=== PATIENT | male | born 1960 | race Caucasian/White ===

== ENCOUNTER 2019-11-30 08:00 | Outpatient (RCR) | payer OTHER, SELFPAY | END 2019-11-30 08:05 | disposition home or self-care (01) | LOC: OT 08:00 | PROVIDERS: Visit Provider Orthopaedic Surgery | DX: S46.212A Strain of muscle, fascia and tendon of other parts of biceps, left arm, initial encounter (principal) | CPT/HCPCS: 97014; 97033; 97035; 97110; 97140; 97164; 97166; G0283 ==

== ENCOUNTER → 2020-10-02 14:17 | Outpatient (CLI) | payer OTHER, SELFPAY ==
--- NOTE | 2020-10-02 14:28 | XR_ITS ---
PROCEDURE: XR CHEST 2V CLINICAL HISTORY: CURRENT SMOKER, COMPARISON: No exams were available for comparison FINDINGS: The cardiomediastinal silhouette and pulmonary vascularity are within normal limits. The lungs are clear without infiltrates, suspicious nodules, or pleural effusions. There is an old left clavicular fracture. IMPRESSION: No acute findings. Dictated by: Cesario Burleson MD 10/02/2020 15:30 Cesario Burleson MD in [facility] 10/02/2020 15:30
--- NOTE | 2020-10-02 15:09 | ECG_ITS ---
APPROVED REPORT Exam: Resting ECG HR:74 bpm ECG Measurements Heart Rate 74 AXES VT 168 P 65 QRSd 130 QRS 54 QT 396 T 191 QTc 439 Conclusion Normal sinus rhythm Left bundle branch block Abnormal ECG Electronically signed by : Layton Stone, 10/04/2020 10:57:45
[2020-10-02 15:48] LABS: Basophils # 0.1 K/mm3 (0-0.2); Basophils % 0.8 % (0.1-2.0); Eosinophils # 0.3 K/mm3 (0.0-0.4); Eosinophils % 4.4 % (0.1-12.0); Hematocrit 45.2 % (42.0-52.0); Hemoglobin 15.3 g/dL (14.1-18.0); Lymphocytes # 1.7 K/mm3 (0.7-4.5); Lymphocytes % 24.8 % (10-50); Mean Corpuscular HGB Conc 33.8 g/dL (31.8-35.4); Mean Corpuscular Hemoglobin 29.9 pg (27.0-31.2); Mean Corpuscular Volume 88.6 fl (80-94); Mean Platelet Volume 8.1 fl (7.4-10.4); Monocytes # 0.5 K/mm3 (0.1-1.0); Monocytes % 7.4 % (1.7-9.3); Neutrophils # 4.2 K/mm3 (1.8-7.8); Neutrophils % 62.6 % (37.0-80.0); Platelet Count 221 K/mm3 (142-424); Red Cell Distribution Width 12.7 % (11.5-17.5); White Blood Count 6.7 K/mm3 (4.8-10.8)
[2020-10-02 16:27] LABS: Chloride 104 mmol/L (98-107); Potassium 4.7 mmoL/L (3.5-5.1); Sodium 138 mmol/L (136-145)
[2020-10-02 16:29] LABS: Alanine Aminotransferase 70 U/L (12-78); Aspartate Amino Transferase 42 U/L (17-59); Blood Urea Nitrogen 16 mg/dl (9-20); Estimated Glomerular Filt Rate 86 ml/min (>60); GFR (African American) 104 ML/MIN (>60)
[2020-10-02 16:30] LABS: Albumin Level 4.9 g/dl (3.5-5.0); Albumin/Globulin Ratio 1.8 (1.1-1.8); Alkaline Phosphatase 91 U/L (38-126); Anion Gap 12.7 mEq/L (5-15); Bilirubin,Total 0.6 mg/dl (0.2-1.3); Calcium 9.6 mg/dl (8.4-10.2); Carbon Dioxide 26 mmol/L (22.0-30.0); Globulin 2.8 g/dL (1.3-3.2); Glucose 92 mg/dl (74-100); Total Protein,Serum 7.7 g/dl (6.3-8.2)
== END ==
PROVIDERS: PCP Family Medicine; Visit Provider Family Medicine
DX: Z01.818 Encounter for other preprocedural examination (principal)
CPT/HCPCS: 36415; 71046; 80053; 85025; 93005

== ENCOUNTER → 2020-11-03 11:53 | Outpatient (CLI) | payer OTHER, SELFPAY ==
--- NOTE | 2020-11-03 11:53 | NM_ITS ---
APPROVED REPORT Exam: Nuclear Stress Test Indication: CAD, HTN, HYPERLIPIDEMIA, TOB USE, FM HX, ABN EKG, PRE-OP Patient Location: Outpatient Stress Tech: Kimberly Vasquez HI Tech:Aby Denney, ARRT, RT (R)(N) Ht: 5 ft 7 in Wt: 190 lbs HR: 63 bpm BP: 121/85 mmHg BSA: 1.98 m2 BMI: 29.7 History: CAD, HTN, HYPERLIPIDEMIA, TOB USE, FM HX, ABN EKG, PRE-OP Procedure: Patient received a 0.4 mg of intravenous Lexiscan, resting heart rate 63 bpm, resting blood pressure 121/85 mmHg, with Lexiscan maximum heart rate achived was 89 bpm which is Less than 85 % of the maximum predicted heart rate and blood pressure was 137/84 mmHg. With Lexiscan, patient denied any complaint of chest pain. Electrocardiogram Resting electrocardiogram shows sinus rhythm, intraventricular conduction delay, nonspecific ST-T changes, with Lexiscan there is less than 1.[address] segment depression noted from the baseline EKG. The EKG portion of the Lexiscan is nondiagnostic. Cardiac Stress and Resting SPECT Images: Cardiac Stress and Resting SPECT images were obtained using technetium 99m Myoview 29.4 mCi stress and 9.93 mCi at rest. Gated SPECT for analysis of segmental wall motion and calculation of ejection fraction also done. Prone images were also obtained. Cardiac stress and resting SPECT images show fixed defect involving the inferior basal wall consistent with area of myocardial scarring without significant negro-infarct ischemia, computer derived ejection fraction is 48% with moderate inferior basal wall hypokinesis, right ventricle is normal size and contractility. Conclusion: 1. The EKG portion of the Lexiscan is nondiagnostic. 2. Scintigraphic evidence of myocardial scarring involving the inferior basal wall without significant negro-infarct ischemia, computer derived ejection fraction is 48% with segmental wall motion abnormality described above, right ventricle is normal size and contractility. 3. Abnormal Lexiscan Myoview study. Electronically signed by : Avelino Badillo, 11/03/2020 23:38:48
--- NOTE | 2020-11-03 14:00 | CA_ITS ---
APPROVED REPORT EXAM: Comprehensive 2D, Doppler, and color-flow Echocardiogram Steam Roller Operator: GRICELDA Mejia, RVS Ht: 5 ft 7 in Wt: 195lbs BSA: 2.00 BP: 122/64 mmHg Rhythm: LBBB Indications: CP,SOB,CAD-OLD ME WITH CORONARY STENT, PRE-OP CLEARANCE LT SHOULDER Echo Enhancing Agent Comments: Poor acoustics with lung impedence 2D Dimensions IVSd 1.18 cm LVEF (Visual) 66.80 % PWd 0.92 cm LA Volume 45.20 mL LVDd 4.63 cm LA Volume Index 22.60 mL/m2 (M/F) 16-34 LVDs 2.92 cm Left Atrium 3.16 cm LVOT 1.83 cm (M/F) 1.5-2.5 M-Mode Dimensions RVDd 2.68 cm (0.9-2.6) LA Diam 4.01 cm (1.9-4.0) LVDd 4.86 cm (3.5-5.7) Ao Diam 3.30 cm (2.0-3.7) LVDs 2.50 cm (3.5-5.7) IVSd 0.93 cm (0.6-1.1) PWd 0.96 cm (0.6-1.1) EF (Teich) 79.90% EPSs 0.36 cm FS 48.60% EDV (Teich) 110.70 mL TAPSE 1.93 (<1.7) ESV (Teich) 22.30 mL LV Diastology E Decel Time 250.00 (160-240 msec) E/A Ratio 0.92 MED E' 5.50 (< 7 cm/sec) MED A' 9.00 cm/s E'/MED E' Ratio 13.44 (>14) LAT E' 10.20 (<10 cm/sec) LAT A' 11.80 cm/s E/LAT E' Ratio 7.25 (>14) Aortic Valve LVOT Max 109.00 (70-110 cm/s) LVOT VTI 19.18 cm AoV Peak Tristin. 137.00 (50-130 cm/s) AO Peak GR. 7.50 mmHg AO Mean GR. 3.70 (<5 mmHg) AO VTI 25.06 (18-25 cm) JERMAINE (VTI) 2.01 (2.5-4.5 cm2) Mitral Valve MV A Velocity 80.00 (40-130 cm/s) E/A Ratio 0.92 MV Decel. Time 250.00 (160-240 ms) Pulmonary Valve PV Peak Velocity 96.00 (50-150 cm/s) Tricuspid Valve TR P. Velocity 253.00 cm/s RAP Estimate 10.00 mmHg RVSP 35.60 mmHg Left Ventricle Left atrium is mildly enlarged, left ventricle is normal size, mild concentric left ventricular hypertrophy, visually estimated ejection fraction 50%, there is marked hypokinesis involving the basal septum and inferior basal wall. Grade 1 diastolic dysfunction seen without tissue Doppler evidence of raise left atrial pressure. Right Ventricle Right atrium and right ventricle are normal size and contractility. Aortic Valve Aortic valve is minimally thickened and fibrosed, there is no aortic stenosis or aortic insufficiency. Mitral Valve Mitral valve is grossly normal, there is mild mitral regurgitation. Tricuspid Valve Tricuspid valve grossly normal, there is mild tricuspid regurgitation, tricuspid regurgitation jet velocity is inadequate for calculation of the right ventricular systolic pressure. Pulmonic Valve Pulmonic valve is poorly visualized. Great Vessels Aortic root is normal size. Inferior vena cava is normal size with normal inspiratory collapse. Pericardium No significant pericardial effusion noted. Conclusion 1. Mildly enlarged left atrium, normal left ventricular size, mild concentric left ventricular hypertrophy, visually estimated ejection fraction 50% with segmental wall motion abnormality described above, grade 1 diastolic dysfunction seen without tissue Doppler evidence of raise left atrial pressure. 2. Mild mitral and tricuspid regurgitation. 3. No significant pericardial effusion noted. Electronically signed by : Avelino Badillo, 11/03/2020 23:11:42
--- NOTE | 2020-11-03 14:05 | HMH.ITSHM ---
Current Home Medications as stated by this patient Viraj Cardoso or sales representative groceries. []TAMSULOSIN NITRO ISOSORBIDE MULTIVITAMIN EZETIMIBE CLOPIDOGREL CARVEDILOL ATORVASTATIN ASA
--- NOTE | 2020-11-03 15:06 | CA_ITS ---
APPROVED REPORT Exam: Pharmacologic Technologist: Kimberly Vasquez, Ht: 5 ft 7 in Wt: 195 lbs BSA: 2.00 m2 HR: 63 bpm BP: 121/85 mmHg Medical History Medications: Aspirin,,,,, Atorvastatin,,,,, Carvedilol,,,,, TAMSULOSIN,,,,, CloPIdogrel,,,,, Nitroglycerin,,,,, Multivitamin,,,,, Ezetimibe,,,,, Isosorbide Mononirtate ER,,,,, Stress Test Details Test: LEXISCAN HR Resting HR: 65 bpm Max Heart Rate (APMHR): 159.987550 bpm Max HR Achieved: 96 bpm Target HR (85% APMHR): 135.976391 bpm % of APMHR: 60.38 Recovery HR: 81 bpm BP Resting BP: 121/85 mmHg Max BP: 142/81 mmHg Recovery BP: 140.0/85.0 mmHg ECG Resting ECG: NSR, IVCD/LBBB pattern Clinical Reason for Termination: Completed Protocol Exercise duration: 04:12 min Highest Stage Achieved: Stress ECG Conclusion Symptoms: None Arrhythmias/Ectopy: None ST-T Changes: None Conclusion: Non-Diagnostic Electronically signed by : Avelino Badillo, 11/03/2020 19:13:52
== END ==
PROVIDERS: PCP Family Medicine; Visit Provider Nurse Practitioner Family
DX: Z01.810 Encounter for preprocedural cardiovascular examination (principal); I25.10 Atherosclerotic heart disease of native coronary artery without angina pectoris; I44.7 Left bundle-branch block, unspecified; R94.31 Abnormal electrocardiogram [ECG] [EKG]; I10 Essential (primary) hypertension; E78.5 Hyperlipidemia, unspecified; F17.200 Nicotine dependence, unspecified, uncomplicated; Z95.5 Presence of coronary angioplasty implant and graft
CPT/HCPCS: 78452; 93017; 93306; A9502; J2785

== ENCOUNTER → 2020-11-18 11:50 | Outpatient (CLI) | payer OTHER, SELFPAY ==
[2020-11-18 12:40] LABS: Chloride 104 mmol/L (98-107); Potassium 4.3 mmoL/L (3.5-5.1); Sodium 141 mmol/L (136-145)
[2020-11-18 12:43] LABS: Anion Gap 12.3 mEq/L (5-15); Blood Urea Nitrogen 20 mg/dl (9-20); Calcium 9.6 mg/dl (8.4-10.2); Carbon Dioxide 29 mmol/L (22.0-30.0); Estimated Glomerular Filt Rate 68 ml/min (>60); GFR (African American) 82 ML/MIN (>60); Glucose 101 mg/dl (74-100)
[2020-11-18 13:21] LABS: Basophils % 0.4 % (0.1-2.0); Eosinophils # 0.3 K/mm3 (0.0-0.4); Eosinophils % 4.5 % (0.1-12.0); Hematocrit 46.7 % (42.0-52.0); Hemoglobin 15.6 g/dL (14.1-18.0); Lymphocytes # 1.4 K/mm3 (0.7-4.5); Lymphocytes % 22.6 % (10-50); Mean Corpuscular HGB Conc 33.5 g/dL (31.8-35.4); Mean Corpuscular Hemoglobin 29.8 pg (27.0-31.2); Mean Corpuscular Volume 89.1 fl (80-94); Mean Platelet Volume 7.8 fl (7.4-10.4); Monocytes # 0.5 K/mm3 (0.1-1.0); Monocytes % 7.5 % (1.7-9.3); Platelet Count 207 K/mm3 (142-424); Red Blood Count 5.24 M/mm3 (4.60-6.20); Red Cell Distribution Width 12.8 % (11.5-17.5); White Blood Count 6.2 K/mm3 (4.8-10.8)
== END ==
PROVIDERS: Visit Provider Urology
DX: Z01.810 Encounter for preprocedural cardiovascular examination (principal); Z11.52 Encounter for screening for COVID-19; I25.10 Atherosclerotic heart disease of native coronary artery without angina pectoris; I44.7 Left bundle-branch block, unspecified; I10 Essential (primary) hypertension; E78.5 Hyperlipidemia, unspecified; F17.200 Nicotine dependence, unspecified, uncomplicated; Z95.5 Presence of coronary angioplasty implant and graft
CPT/HCPCS: 80048; 85025; U0003

== ENCOUNTER 2020-11-19 08:25 | Day surgery (SDC) | payer OTHER, SELFPAY ==
[2020-11-19] VITALS (9 sets, daily range): BP systolic 90–121; BP diastolic 61–86; PULSE 56–76; RESP 18–20; TEMP 36.6; O2SAT 94–98; BMI 30.7
--- NOTE | 2020-11-19 07:12 | IR_ITS ---
APPROVED REPORT Patient Location: Outpatient Comber Setter: LUZ ELENA Merritt RT (R) PROCEDURES Left heart catheterization Left ventriculogram Selective coronary INDICATION Preoperative evaluation, Abnormal Myoview, Known coronary disease, Informed consent was obtained prior to the procedure. COMPLICATIONS NONE Estimated Blood Loss: LESS THAN 10 ML TECHNIQUE One percent lidocaine used to anesthetize the right anterior aspect of the wrist. The right radial artery was accessed via the Seldinger technique. A 6 Uzbek sheath was placed in the right radial artery. 2.5 mg of verapamil, 800 mcg of nitroglycerin, 1mg Lidocaine and 5000 U Heparin were given through the arterial sheath. The trap catheter was also used to perform left heart catheterization, left ventriculogram and selective coronary angiogram. At the end of the procedure the sheath was removed good hemostasis was achieved using Traclet band, patient was transferred to the postop holding area in stable condition. ANGIOGRAPHIC RESULTS The left main artery Normal The left anterior descending artery Is a proximal 30 to 40% eccentric stenosis followed by mid vessel 30 to 40% stenosis with distal 10 to 20% diffuse stenoses The circumflex artery Is a nondominant vessel and gives rise to 2 large obtuse marginal arteries proximally the circumflex artery has a 20% concentric stenosis. The large first obtuse marginal artery is widely patent and normal. The second obtuse marginal artery has a stent in its proximal segment which is widely patent free of in-stent restenosis with excellent proximal distal transitioning The right coronary artery Is a dominant vessel and has proximal and mid vessel 30 and 40% stenoses with a distal 20% stenosis The DASILVA ventriculogram reveals Preserved at 55 to 60% The left ventricular end-diastolic pressure 20 mmHg IMPRESSION Mild to moderate coronary disease as described above none of which is flow-limiting Widely patent stent in the second obtuse marginal artery Preserved ejection fraction Elevated LVEDP PLAN 1. Patient is alone acceptable risk to proceed with elective shoulder surgery 2. Risk factor modification 3. Medical management Electronically signed by : Ryne Clayton, 11/19/2020 10:26:06
== END 2020-11-19 12:36 | disposition home or self-care (01) ==
LOC: CATHLAB 08:27
PROVIDERS: PCP Family Medicine; Visit Provider Internal Medicine
DX: I25.118 Atherosclerotic heart disease of native coronary artery with other forms of angina pectoris (principal); F17.210 Nicotine dependence, cigarettes, uncomplicated; I25.2 Old myocardial infarction; I10 Essential (primary) hypertension; E78.5 Hyperlipidemia, unspecified; Z95.5 Presence of coronary angioplasty implant and graft; R93.1 Abnormal findings on diagnostic imaging of heart and coronary circulation; R94.30 Abnormal result of cardiovascular function study, unspecified
CPT/HCPCS: 93458; 99152; C1725; C1769; J1644; Q9967

== ENCOUNTER → 2021-05-06 08:11 | Outpatient (CLI) | payer OTHER, SELFPAY | PROVIDERS: Visit Provider Nurse Practitioner | DX: U07.1 COVID-19 (principal) | CPT/HCPCS: C9803; U0003; U0005 ==

== ENCOUNTER 2021-07-30 10:00 | Outpatient (RCR) | payer OTHER, SELFPAY | END 2021-07-30 11:00 | disposition home or self-care (01) | LOC: OT 10:00 | PROVIDERS: Visit Provider Student in an Organized Health Care Education/Training Program | DX: S46.012D Strain of muscle(s) and tendon(s) of the rotator cuff of left shoulder, subsequent encounter (principal) | CPT/HCPCS: 97010; 97014; 97110; 97140; 97164; 97165; 97530; G0283 ==

== ENCOUNTER 2021-10-16 08:00 | Outpatient (RCR) | payer OTHER, SELFPAY | END 2021-10-16 08:05 | disposition home or self-care (01) | LOC: OT 08:00 | PROVIDERS: Visit Provider Physician Assistant Medical | DX: S46.012D Strain of muscle(s) and tendon(s) of the rotator cuff of left shoulder, subsequent encounter (principal) | CPT/HCPCS: 97110; 97140; 97164; 97166; 97530 ==

== ENCOUNTER → 2022-07-02 14:54 | Outpatient (CLI) | payer SELFPAY ==
--- NOTE | 2022-07-02 14:58 | MR_ITS ---
FINAL REPORT CLINICAL HISTORY: NEW DAILY PRESISTANT HEADACHES. WEAKNESS, FATIGUE, DISORENTED, WEIGHT LOSS. TREMORS. COMPARISON: none FINDINGS: Multiplanar MR imaging of the brain was performed without and with contrast. There is no evidence of intracranial hemorrhage or mass. No abnormal extra-axial fluid collection is seen. There is bilateral periventricular increased T2 signal, left worse than right, which is nonspecific and may represent chronic ischemic change, demyelination, or less likely changes of vasculitis. There is no evidence of shift of the midline structures. The posterior fossa and brainstem have an unremarkable appearance. No area of abnormal restricted diffusion is identified. Retention cysts or polyps are noted in the maxillary sinuses. No abnormal contrast enhancement is seen. Normal major vessel vascular flow voids are noted. IMPRESSION: Bilateral periventricular increased T2 signal may represent chronic ischemic change, demyelination, or less likely changes of vasculitis. Reviewed, Interpreted and Dictated by Poli Mike III, MD Transcribed by Iris Valle Authenticated and [facility]
== END ==
LOC: RAD 14:54
PROVIDERS: PCP Family Medicine; Visit Provider Family Medicine
DX: G44.52 New daily persistent headache (NDPH) (principal)
CPT/HCPCS: 70553; A9576

== ENCOUNTER 2022-11-18 20:44 | Emergency (ER) | payer OTHER, SELFPAY ==
[2022-11-18] VITALS (7 sets, daily range): BP systolic 89–141; BP diastolic 59–101; PULSE 62–88; RESP 15–16; TEMP 36.6–37.1; O2SAT 94–96; BMI 23.5
--- NOTE | 2022-11-18 20:50 | PC.NURSE ---
seizure pads place on bed
[2022-11-18 21:13] LABS: Basophils % 0.3 % (0.1-2.0); Eosinophils # 0.2 K/mm3 (0.0-0.4); Eosinophils % 2.5 % (0.1-12.0); Hematocrit 49.2 % (42.0-52.0); Hemoglobin 15.8 g/dL (14.1-18.0); Lymphocytes # 0.9 K/mm3 (0.7-4.5); Lymphocytes % 12.5 % (10-50); Mean Corpuscular HGB Conc 32.1 g/dL (31.8-35.4); Mean Corpuscular Hemoglobin 30.4 pg (27.0-31.2); Mean Corpuscular Volume 94.7 fl (80-94); Mean Platelet Volume 8.6 fl (7.4-10.4); Monocytes # 0.5 K/mm3 (0.1-1.0); Monocytes % 6.3 % (1.7-9.3); Neutrophils # 5.8 K/mm3 (1.8-7.8); Neutrophils % 78.4 % (37.0-80.0); Platelet Count 213 K/mm3 (142-424); Red Blood Count 5.19 M/mm3 (4.60-6.20); White Blood Count 7.4 K/mm3 (4.8-10.8)
[2022-11-18 21:18] LABS: Alanine Aminotransferase 48 U/L (12-78); Albumin Level 4.7 g/dl (3.5-5.0); Albumin/Globulin Ratio 1.7 (1.1-1.8); Alkaline Phosphatase 72 U/L (38-126); Anion Gap 14.4 mEq/L (5-15); Aspartate Amino Transferase 42 U/L (17-59); Bilirubin,Total 0.5 mg/dl (0.2-1.3); Blood Urea Nitrogen 9 mg/dl (9-20); Calcium 9.6 mg/dl (8.4-10.2); Carbon Dioxide 25 mmol/L (22.0-30.0); Chloride 105 mmol/L (98-107); Creatinine Clearance Estimated 73 mL/min (50-200); Estimated Glomerular Filt Rate 98 ml/min (>60); GFR (African American) 118 ML/MIN (>60); Globulin 2.7 g/dL (1.3-3.2); Glucose 138 mg/dl (74-100); Potassium 4.4 mmoL/L (3.5-5.1); Sodium 140 mmol/L (136-145); Total Protein,Serum 7.4 g/dl (6.3-8.2)
--- NOTE | 2022-11-18 21:20 | CT_ITS ---
PROCEDURE INFORMATION: Exam: CT Head Without Contrast Exam date and time: 11/18/2022 9:45 PM Age: 62 years old Clinical indication: Condition or disease; Convulsions or seizures; Additional info: Seizure TECHNIQUE: Imaging protocol: Computed tomography of the head without contrast. Radiation optimization: All CT scans at this facility use at least one of these dose optimization techniques: automated exposure control; mA and/or kV adjustment per patient size (includes targeted exams where dose is matched to clinical indication); or iterative reconstruction. REPORTING DATA: Count of CT and Cardiac NM exams in prior 12 months: This patient has received 0 known CTs and 0 known cardiac nuclear medicine studies in the 12 months prior to the current study. COMPARISON: MR HEAD/BRAIN WO/W CON 07/02/2022 2:55 PM FINDINGS: Brain: No evidence for intracranial hemorrhage, mass lesions or acute stroke. Mild small vessel ischemic change in the periventricular white matter. Intrinsically dense cerebral vessels; difficult to evaluate. Cerebral ventricles: No ventriculomegaly. Pituitary gland and sella: Negative Paranasal sinuses: Visualized sinuses are unremarkable. No fluid levels. Mastoid air cells: Visualized mastoid air cells are well aerated. Orbital cavities: Negative. Parotid and submandibular glands: Negative Bones/joints: Unremarkable. No acute fracture. Soft tissues: Unremarkable. Vasculature: Negative. IMPRESSION: 1. No evidence for intracranial hemorrhage, mass lesions or acute stroke. 2. Mild small vessel ischemic change in the periventricular white matter.
[2022-11-18 21:27] LABS: Valproic Acid, (Depakene) < 10.0 ug/ml (50-100)
--- NOTE | 2022-11-18 21:45 | HMH.EDGENADL ---
Discharge Plan Disposition Patient Disposition: Home, Self-Care Prescriptions Prescriptions: No Action ezetimibe 10 mg tablet 5 mg PO DAILY tamsulosin 0.4 mg capsule 0.4 mg PO DAILY carvedilol 3.125 mg tablet 3.125 mg PO BID clopidogrel 75 mg tablet 75 mg PO DAILY isosorbide mononitrate 30 mg tablet extended release 24 hr 30 mg PO DAILY atorvastatin 40 mg tablet 40 mg PO DAILY aspirin [Adult Low Dose Aspirin] 81 mg tablet,delayed release (DR/EC) 81 mg PO DAILY nitroglycerin 0.4 mg tablet, sublingual 0.4 mg SUBLINGUAL Q5M PRN (Reason: Chest Pain) Rx Instructions: do not exceed 3 doses per episode multivitamin [Multiple Vitamins] Tablet 1 tab PO DAILY quetiapine 25 mg tablet 50 mg PO HS Patient Comments: TAKE ONE TABLET BY MOUTH EVERY NIGHT valproic acid 250 mg capsule 500 mg PO BID Patient Comments: TAKE TWO CAPSULES BY MOUTH TWICE DAILY Referrals Follow up/Referrals: Iggy Brothers MD [Primary Care Provider] - See instructions Activity Restrictions/Add. Instructions Additional Instructions/Restrictions: Follow-up with neurology, as discussed. Follow-up with Dr. Brothers as well. If you have any worsening of your condition or any other concerning signs or symptoms, return to the emergency department or your primary care doctor for further evaluation. Seizure precautions - do not do any of these activities until cleared by your neurologist: 1) avoid sleep deprivation 2) avoid open bodies of water and open flames 3) avoid swimming alone 4) take showers, do not take baths 5) avoid any situation where loss of consciousness may predispose to injury or 6) avoid driving Clinical Impressions Clinical Impression: Generalized tonic-clonic seizure Instructions Patient Instructions: DI for Seizure Disorder -- Adult, DI for Seizure (Not Epilepsy/Seizure Disorder), DI for Seizure Disorder -- Child Discharge ED Provider: Marcelo Huerta General Adult [facility] General Chief complaint: Seizure Stated complaint: seizure activity Time Seen by Provider: 11/18/22 20:47 Mode of Arrival: Family Vehicle Source of Information: Patient Limitations: No Limitations Description of Symptoms (Recalled from ER Triage Doc. by RN): 62 yo male presents following what his estimates to be a 5 min seizure. Patient has been sent here by PCP for serum valproic acid levels specifically and to eval for seziure length. Patient is somewhat confused at baseline and a poor historian. Repetitive questions to staff noted during triage. states he was encephalopathic back in May and had multiple neurological issues then. Follows with Neurology. Patient did not have a post-ictal phase as indicated by 's description of immediate time following seizure conclusion. Patient does have a couple of S/T to left hand/forearm. 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 Patient had seizure-like activity, reportedly, and is currently on Depakote. Has not had a seizure like this, ever and since his encephalitis. Today, patient had a seizure that lasted approximately 5 minutes and was a generalized tonic-clonic seizure. Patient was combative, confused afterward. They contacted his family doctor who recommended he come to the ER for further evaluation. Patient denies head trauma, fevers or chills, sick symptoms, new neurologic deficits. Per family, patient appears to be at baseline. Denies missing any medication doses. Related Data Home Medications Medication Instructions Recorded Confirmed aspirin 81 mg tablet,delayed 81 mg PO DAILY Heart disease 10/07/20 11/18/22 release (Adult Low Dose Aspirin) atorvastatin 40 mg tablet 40
--- NOTE | 2022-11-18 21:51 | ECG_ITS ---
APPROVED REPORT Exam: Resting ECG HR:72 bpm ECG Measurements Heart Rate 72 AXES AL 160 P 69 QRSd 129 QRS 71 QT 370 T 234 QTc 394 Conclusion SINUS RHYTHM LEFT BUNDLE BRANCH BLOCK [120+ ms QRS DURATION, 80+ ms Q/S IN V1/V2, 85+ ms R IN I/aVL/V5/V6] ABNORMAL ECG UNCONFIRMED REPORT Electronically signed by : Layton Stone MD 11/19/2022 16:16:47
--- NOTE | 2022-11-18 22:17 | PC.NURSE ---
pt received pillow and case
--- NOTE | 2022-11-18 22:23 | PC.NURSE ---
checked on pt nothing needed at this time,call light at bs
--- NOTE | 2023-01-03 13:48 | PC.NURSE ---
Have called and left patient numerous messages about a HST with no return calls.
== END 2022-11-18 23:00 | disposition home or self-care (01) ==
PROVIDERS: Emergency Provider Emergency Medicine; PCP Family Medicine
DX: G40.309 Generalized idiopathic epilepsy and epileptic syndromes, not intractable, without status epilepticus (principal); I25.10 Atherosclerotic heart disease of native coronary artery without angina pectoris; I10 Essential (primary) hypertension; E78.5 Hyperlipidemia, unspecified; Z87.891 Personal history of nicotine dependence
CPT/HCPCS: 70450; 80053; 80164; 85025; 93005; 96374; 99285; J1953

== ENCOUNTER → 2023-03-24 11:52 | Outpatient (CLI) | payer OTHER, SELFPAY | LOC: LAB 11:53 | PROVIDERS: PCP Family Medicine; Visit Provider Family Medicine | DX: Z20.822 Contact with and (suspected) exposure to COVID-19 (principal); U07.1 COVID-19 | CPT/HCPCS: 87635 ==